=== PATIENT | female | born 1960 | race African-American/Black ===

== ENCOUNTER 2017-10-02 15:28 | Inpatient (IN) | payer OTHER ==
[2017-10-02 18:48] VITALS: BMI 28.3
--- NOTE | 2017-10-02 22:12 | HP ---
COWS - Scale Resting Pulse: 0= [place] 80 or Below Sweatin=Flushed/Facial Moisture Restless Observation: 0= Sits Still Pupil Size: 1= Pupils >than Normal Bone or Joint Aches: 4=Acute Joint/Muscle Pain Runny Nose/ Eye Tearin= Runny Nose/Eyes GI Upset > 30mins: 3= Vomiting/Diarrhea (DIARRHEA X 3, VOMITING X 1) Tremor Observation: 2= Slight Tremor Visible Yawning Observation: 0= None Anxiety or Irritability: 2=Irritable/Anxious Goose Flesh Skin: 0=Smooth Skin COWS Score: 16 Admission [facility] Chief Complaint: Heroin and cocaine withdrawal symptoms Allergies/Adverse Reactions: Allergies Allergy/AdvReac Type Severity Reaction Status Date / Time chlordiazepoxide Allergy Severe Nausea Verified 10/02/17 21:38 [From Librium] History of Present Illness: 57 years old female with a long history of heroin dependence is admitted to detox. Patient has been in previous detox, last at [facility] in 2014. Patient denies suicidal ideation and reports 5 years of sobriety. She has medical history of HTN, Hep C, GERD and depression. Exam Limitations: No Limitations - Ebola screening Have you traveled outside of the country in the last 21 days: No Have you had contact with anyone from an Ebola affected area: No Have you been sick,other than usual withdrawal symptoms: No Do you have a fever: No - Review of Systems Constitutional: Chills, Loss of Appetite, Malaise, Night Sweats, Changes in sleep EENT: reports: No Symptoms Reported, Other (use prescription eye wear) Respiratory: reports: No Symptoms reported Cardiac: reports: No Symptoms Reported GI: reports: Diarrhea, Poor Appetite, Poor Fluid Intake, Vomiting : reports: No Symptoms Reported Musculoskeletal: reports: Muscle Pain, Muscle Weakness Integumentary: reports: Flushing Neuro: reports: Headache, Tingling, Tremors Endocrine: reports: Increased Thirst Hematology: reports: No Symptoms Reported Psychiatric: reports: Orientated x3, Agitated, Anxious Other Systems: Reviewed and Negative Patient History - Patient Medical History Hx Anemia: No Hx Asthma: No Hx Chronic Obstructive Pulmonary Disease (COPD): No Hx Cancer: No Hx Cardiac Disorders: No Hx Congestive Heart Failure: No Hx Hypertension: Yes (Managed with Norvasc) Hx Hypercholesterolemia: No Hx Pacemaker: No HX Cerebrovascular Accident: No Hx Seizures: No Hx Dementia: No Hx Diabetes: No Hx Gastrointestinal Disorders: Yes (GERD) Hx Liver Disease: No Hx Genitourinary Disorders: No Hx Sexually Transmitted Disorders: No Hx Renal Disease (ESRD): No Hx Thyroid Disease: No Hx Human Immunodeficiency Virus (HIV): No Hx Hepatitis C: Yes Hx Depression: Yes Hx Suicide Attempt: No (Denies suicidal ideaion at this time) Hx Bipolar Disorder: No Hx Schizophrenia: No - Patient Surgical History Past Surgical History: Yes Hx Neurologic Surgery: No Hx Cataract Extraction: No Hx Cardiac Surgery: No Hx Lung Surgery: No Hx Breast Surgery: No Hx Breast Biopsy: No Hx Abdominal Surgery: No Hx Appendectomy: No Hx Cholecystectomy: No Hx Genitourinary Surgery: No Hx Section: Yes ( 25yrs ago) Hx Orthopedic Surgery: No Hx Hysterectomy: No Anesthesia Reaction: No - PPD History Previous Implant?: No Documented Results: Negative w/o proof Implanted On Prior [facility] Admission?: Yes Date: 02/20/14 Results: 0mm PPD to be Administered?: Yes - Reproductive History Patient is a Female of Child Bearing Age (11 -55 yrs old): No Last Menstrual Period: 11/17/07 LMP comment: Menopausal Patient : No - Smoking Cessation Smoking history: Current every day smoker Have you smoked in the past 12 months: Yes Aproximately how many cigarettes per day: 5 Hx Chewing Tobacco Use: No Initiated information on smoking cessation: Yes 'Breaking Loose' booklet given: 10/02/17 - Substance & Tx. History Hx Alcohol Use: No Hx Substance Use: Yes Substance Use Type: Cocaine, Heroin Hx Substance Use Treatment: Yes ([facility] 01/25/2015) - Substances Abused Heroin Route: Inhalation Frequency: Daily Amount used: 4 bags Age of first use: 15 Date of Last Use: 10/02/17 Cocaine Route: Smoking Frequency: Daily Amount used: 2 bags Age of first use: 15 Date of Last Use: 10/02/17 Family Disease History - Family Disease History Family Disease History: [place]: Father (), Mother (), Other: Father , Mother Admission Physical Exam BHS - Vital Signs Vital Signs: Vital Signs - 24 hr 10/02/17 18:44 Temperature 97.6 F Pulse Rate 72 Respiratory 18 Rate Blood Pressure 150/90 - Physical General Appearance: Yes: Moderate Distress HEENTM: Yes: Within Normal Limits, EOMI, MEEK, Other (Has dentures but left them at home) Respiratory: Yes: Lungs Clear, Normal Breath Sounds, No Respiratory Distress Neck: Yes: Supple Breast: Yes: Breast Exam Deferred Cardiology: Yes: Regular Rhythm, Regular Rate, S1, S2 Abdominal: Yes: Normal Bowel Sounds, Soft Genitourinary: Yes: Within Normal Limits Back: Yes: Within Normal Limits Musculoskeletal: Yes: Muscle Pain, Muscle weakness Extremities: Yes: Tremors Neurological: Yes: Within Normal Limits, Alert, Normal Response Integumentary: Yes: Dry Lymphatic: Yes: Within Normal Limits - Diagnostic (1) Opioid dependence with withdrawal Current Visit: Yes Status: Chronic (2) Cocaine dependence Current Visit: Yes Status: Chronic (3) HTN (hypertension) Current Visit: Yes Status: Chronic (4) Hepatitis C Current Visit: Yes Status: Chronic (5) Nicotine dependence Current Visit: Yes Status: Chronic Cleared for Admission [facility] - Detox or Rehab [facility] Level of Care: Medically Managed Detox Regimen/Protocol: Methadone [facility] Breath Alcohol Content Breath Alcohol Content: 0 Urine Pregancy Test - Result Urine Test Results: Negative- NO Line Present Urine Drug Screen - Results Drug Screen Negative: No Urine Drug Screen Results: WILBERT-Cocaine, OPI-Opiates
[2017-10-02] MEDS ORDERED: guaiFENesin/D-METHORPHAN HB 10 ML UNIT-DOSE CUPS PO PRN (22:23)
[2017-10-02] MEDS ORDERED: METHADONE HCL 10 MG TABLET (FOR DETOX USE ONLY) PO ONE ×2 (22:23→23:00)
[2017-10-02] MEDS ORDERED: MAGNESIUM HYDROX 2400MG/30ML ORAL SUSPENSION 30 ML CUP PO PRN (22:23)
[2017-10-02] MEDS ORDERED: MAG HYDROX/AL HYDROX/SIMETH 30 ML UNIT-DOSE CUP PO PRN (22:23)
[2017-10-02] MEDS ORDERED: NICOTINE POLACRILEX 2 MG GUM BC PRN (22:23)
[2017-10-02] MEDS ORDERED: LOPERAMIDE HCL 2 MG CAPSULE PO PRN (22:23)
[2017-10-02] MEDS ORDERED: MAGNESIUM CITRATE 300 ML BOTTLE PO PRN (22:23)
[2017-10-02] MEDS ORDERED: IBUPROFEN 400 MG TABLET (FP) PO PRN (22:23)
[2017-10-02] MEDS ORDERED: MENTHOL/PHENOL 1 EACH UD MM PRN (22:23)
[2017-10-02] MEDS: diazePAM 5 MG TABLET PO PRN (23:50)
[2017-10-03] MEDS: P-EPHED 60MG/TRIPROLIDI 2.5MG TABLET PO PRN ×3 (04:05→22:12)
[2017-10-03] MEDS ORDERED: METHADONE HCL 10 MG TABLET (FOR DETOX USE ONLY) PO ONE (10:00)
[2017-10-03 10:07] LABS: HEMATOCRIT 38.8 % (32.4-45.2); HEMOGLOBIN 12.1 GM/dL (10.7-15.3); MCH 24.3 pg (25.7-33.7); MCHC 31.1 g/dl (32.0-36.0); MEAN CELL VOLUME 78.2 fl (80-96); MEAN PLT VOLUME 9.3 fl (7.5-11.1); PLATELET COUNT 329 K/MM3 (134-434); RBC 4.96 M/mm3 (3.60-5.2); RDW 19.3 % (11.6-15.6); WHITE BLOOD COUNT 6.3 K/mm3 (4.0-10.0)
[2017-10-03] MEDS: NICOTINE 14 MG/24 HOURS TOPICAL PATCH TD SCH (10:07)
[2017-10-03] MEDS: PRENATAL VITAMINS W/ FOLIC ACID TABLET (FP) PO SCH (10:07)
[2017-10-03] MEDS: amLODIPine BESYLATE 5 MG TABLET (FP) PO SCH (10:07)
[2017-10-03] MEDS: diazePAM 5 MG TABLET PO PRN (10:07)
--- NOTE | 2017-10-03 10:52 | PN ---
BHS COWS - Scale Resting Pulse: 0= [place] 80 or Below Sweatin= No chills or Flushing Restless Observation: 1= Difficult to Sit Still Pupil Size: 2= Moderately Dilated Bone or Joint Aches: 2= Severe Diffuse Aches Runny Nose/ Eye Tearin= Nasal Congestion GI Upset > 30mins: 2= Nausea/Diarrhea Tremor Observation of Outstretched Hands: 2= Slight Tremor Visible Yawning Observation: 1= 1-2x During Session Anxiety or Irritability: 2=Irritable/Anxious Goose Flesh Skin: 0=Smooth Skin COWS Score: 13 BHS Progress Note (SOAP) Objective: 10/03/17 10:51 Laboratory Tests 10/03/17 07:00 WBC 6.3 D RBC 4.96 Hgb 12.1 Hct 38.8 MCV 78.2 L MCH 24.3 L MCHC 31.1 L RDW 19.3 H D Plt Count 329 MPV 9.3 Vital Signs - 24 hr 10/02/17 10/02/17 10/03/17 18:44 23:50 03:30 Temperature 97.6 F 98.2 F Pulse Rate 72 72 Respiratory 18 18 18 Rate Blood Pressure 150/90 151/99 10/03/17 10/03/17 06:00 09:26 Temperature 98.6 F 98.8 F Pulse Rate 69 70 Respiratory 18 16 Rate Blood Pressure 135/85 152/76 [facility] PENDING Assessment: 10/03/17 10:52 ONGOING WITHDRAWAL Plan: CONTINUE DETOX PROTOCOL
[2017-10-03 11:41] LABS: CHLORIDE 105 mmol/L (98-107); SODIUM 141 mmol/L (136-145)
[2017-10-03 12:11] LABS: ALBUMIN 3.4 g/dl (3.4-5.0); ALK PHOS 116 U/L (45-117); ANION GAP 7 (8-16); BILIRUBIN,TOTAL 0.4 mg/dL (0.2-1.0); BLOOD UREA NITROGEN 14 mg/dL (7-18); CALCIUM 9.2 mg/dL (8.5-10.1); CO2 29 mmol/L (21-32); CREATININE 0.7 mg/dL (0.55-1.02); GLUCOSE,RANDOM 103 mg/dL (74-106); SGPT/ALT 20 U/L (12-78)
[2017-10-03 12:17] LABS: POTASSIUM 5.1 mmol/L (3.5-5.1); SGOT/AST 18 U/L (15-37)
--- NOTE | 2017-10-03 14:12 | CONSULT ---
[facility] Psychiatric Consult - Data Date of interview: 10/03/17 Admission source: [facility] Identifying data: Pt. is a 57 year old female, single, mother of six, unemployed and currently homeless. This is one of multiple admissions for patient. Pt. admitted to for opiate and cocaine dependence. Substance Abuse History: Following information confirmed with Ms. Coelho: Smoking Cessation. Smoking history: Current every day smoker. Have you smoked in the past 12 months: Yes. Aproximately how many cigarettes per day: 5. Hx Chewing Tobacco Use: No. Initiated information on smoking cessation: Yes. ' Breaking Loose' booklet given: 10/02/17. - Substance & Tx. History. Hx Alcohol Use: No. Hx Substance Use: Yes. Substance Use Type: Cocaine, Heroin. Hx Substance Use Treatment: Yes ([facility] 01/25/2015). - Substances Abused. Heroin. Route: Inhalation. Frequency: Daily. Amount used: 4 bags. Age of first use: 15. Date of Last Use: 10/02/17. Cocaine. Route: Smoking. Frequency: Daily. Amount used: 2 bags. Age of first use: 15. Date of Last Use : 10/02/17 Medical History: hypertension, GERD, HEP C Psychiatric History: Pt. reports one psychiatric hospitalization approximately [address] [facility]. States she was diagnosed with MDD. Last had OPC three years ago and was prescribed paxil (unknown dose) and Mirtazapine 45mg. Pt. was restarted on her medications while incarcerated for 6 months in 2017 for a misdeamonor. Reports last taking paxil and mirtazapine in June of 2017. As per pharmacy claims, patient was given a prescription of Mirtazapine 45mg and Paxil 20mg on 07/02/17. Pt. denies h/o suicide attempt. Pt. denies suicial and homicidal ideation. Physical/Sexual Abuse/Trauma History: Denies. Mental Status Exam - Mental Status Exam Alert and Oriented to: Time, Place, Person Cognitive Function: Good Patient Appearance: Unkempt Mood: Withdrawn, Euthymic Affect: Mood Congruent Patient Behavior: Fatigued, Cooperative Speech Pattern: Appropriate Voice Loudness: Normal Thought Process: Goal Oriented Thought Disorder: Not Present Hallucinations: Denies Suicidal Ideation: Denies Homicidal Ideation: Denies Insight/Judgement: Poor Sleep: Poorly Appetite: Fair Muscle strength/Tone: Normal Gait/Station: Normal Psychiatric Findings - Problem List (Wever 1, 2,3) (1) MDD (major depressive disorder) Current Visit: Yes Status: Chronic Comment: Self reports. (2) Cocaine dependence Current Visit: Yes Status: Acute (3) Opioid dependence with withdrawal Current Visit: Yes Status: Acute (4) Opioid dependence Current Visit: Yes Status: Acute (5) Nicotine dependence Current Visit: Yes Status: Chronic - Initial Treatment Plan Initial Treatment Plan: Psychoeducation provided. Detoxification in progress. Mirtazapine 15mg + Paxil 20mg PO daily. Benefits and side effects discussed. Verbal consent given. Will continue to monitor patient.
[2017-10-03] MEDS: THIAMINE HCL 100 MG TABLET (FP) PO SCH (22:10)
[2017-10-03] MEDS: MIRTAZAPINE 15 MG TABLET (FP) PO SCH (22:10)
[2017-10-04] MEDS: ACETAMINOPHEN 325 MG TABLET (FP) PO PRN ×2 (06:57→22:06)
[2017-10-04] MEDS: P-EPHED 60MG/TRIPROLIDI 2.5MG TABLET PO PRN ×2 (06:58→19:28)
--- NOTE | 2017-10-04 07:53 | EKG ---
Test Reason : Blood Pressure : / mmHG Vent. Rate : 065 BPM Atrial Rate : 065 BPM P-R Int : 150 ms QRS Dur : 084 ms QT Int : 424 ms P-R-T Axes : 027 043 -27 degrees QTc Int : 440 ms NORMAL SINUS RHYTHM WITH SINUS ARRHYTHMIA VOLTAGE CRITERIA FOR LEFT VENTRICULAR HYPERTROPHY NONSPECIFIC ST AND T WAVE ABNORMALITY ABNORMAL ECG NO PREVIOUS ECGS AVAILABLE Confirmed by HÉCTOR SHERIDAN MD ([id number]) on 10/04/2017 7:53:19 AM Referred By: Confirmed By:HÉCTOR SHERIDAN MD
[2017-10-04] MEDS ORDERED: METHADONE HCL 5 MG TABLET (FOR DETOX USE ONLY) PO ONE (10:00)
--- NOTE | 2017-10-04 10:23 | EKG ---
Test Reason : Blood Pressure : / mmHG Vent. Rate : 062 BPM Atrial Rate : 062 BPM P-R Int : 142 ms QRS Dur : 084 ms QT Int : 456 ms P-R-T Axes : 014 053 -61 degrees QTc Int : 462 ms NORMAL SINUS RHYTHM MODERATE VOLTAGE CRITERIA FOR LVH, MAY BE NORMAL VARIANT T WAVE ABNORMALITY, CONSIDER INFEROLATERAL ISCHEMIA PROLONGED QT ABNORMAL ECG WHEN COMPARED WITH ECG OF 03-OCT-2017 00:12, INVERTED T WAVES HAVE REPLACED NONSPECIFIC T WAVE ABNORMALITY IN LATERAL LEADS Confirmed by FATIMAH DRAPER, HÉCTOR ([id number]) on 10/04/2017 10:22:50 AM Referred By: Confirmed By:HÉCTOR SHERIDAN MD
[2017-10-04] MEDS: PARoxetine HCL 20 MG TABLET (FP) PO SCH (10:26)
[2017-10-04] MEDS: PRENATAL VITAMINS W/ FOLIC ACID TABLET (FP) PO SCH (10:26)
[2017-10-04] MEDS: amLODIPine BESYLATE 5 MG TABLET (FP) PO SCH (10:26)
[2017-10-04] MEDS: NICOTINE 14 MG/24 HOURS TOPICAL PATCH TD SCH (10:26)
[2017-10-04] MEDS: diazePAM 5 MG TABLET PO PRN (10:26)
[2017-10-04 13:46] LABS: URINE APPEARANCE SLCLOUDY; URINE BILIRUBIN NEGATIVE (NEGATIVE); URINE BLOOD NEGATIVE (NEGATIVE); URINE COLOR YELLOW; URINE GLUCOSE (UA) NEGATIVE (NEGATIVE); URINE KETONE NEGATIVE (NEGATIVE); URINE NITRITE NEGATIVE (NEGATIVE); URINE PROTEIN NEGATIVE (NEGATIVE)
--- NOTE | 2017-10-04 13:57 | PN ---
BHS COWS - Scale Resting Pulse: 1= [place] 81-100 Sweatin= Chills/Flushing Restless Observation: 1= Difficult to Sit Still Pupil Size: 1= Pupils >than Normal Bone or Joint Aches: 1= Mild Discomfort Runny Nose/ Eye Tearin= Nasal Congestion GI Upset > 30mins: 1= Stomach Cramp Tremor Observation of Outstretched Hands: 1= Tremor [place], Not Seen Yawning Observation: 0= None Anxiety or Irritability: 1=Feels Anxious/Irritable Goose Flesh Skin: 0=Smooth Skin COWS Score: 9 BHS Progress Note (SOAP) Subjective: interrupted sleep, sweats, constipation , nasal congestion Objective: 10/04/17 13:56 Vital Signs Temperature 98.4 F 10/04/17 13:08 Pulse Rate 98 H 10/04/17 13:08 Respiratory Rate 18 10/04/17 13:08 Blood Pressure 148/98 10/04/17 13:08 O2 Sat by Pulse Oximetry (%) Laboratory Tests 10/03/17 10/03/17 10/03/17 07:00 07:00 07:00 WBC 6.3 D RBC 4.96 Hgb 12.1 Hct 38.8 MCV 78.2 L MCH 24.3 L MCHC 31.1 L RDW 19.3 H D Plt Count 329 MPV 9.3 Sodium 141 Potassium 5.1 Chloride 105 Carbon Dioxide 29 Anion Gap 7 L BUN 14 Creatinine 0.7 Creat Clearance w eGFR > 60 Random Glucose 103 Calcium 9.2 Total Bilirubin 0.4 D AST 18 ALT 20 Alkaline Phosphatase 116 Total Protein 7.0 Albumin 3.4 RPR Titer Nonreactive pt aox3 in nad + nasal congestion Assessment: 10/04/17 13:57 withdrawal sx's Plan: cont. detox increase fluids flonase nasal
[2017-10-04 14:04] LABS: URINE LEUK ESTERASE 3+ (NEGATIVE)
[2017-10-04 14:06] LABS: EPI CELLS MODERATE /HPF (FEW); URINE HYALINE CAST 2 /lpf; URINE MUCUS RARE
[2017-10-04] MEDS: THIAMINE HCL 100 MG TABLET (FP) PO SCH (22:05)
[2017-10-04] MEDS: FLUTICASONE PROP 0.05% 16 GM NASAL SPRAY NS SCH (22:05)
[2017-10-04] MEDS: MIRTAZAPINE 15 MG TABLET (FP) PO SCH (22:05)
[2017-10-05] MEDS: ACETAMINOPHEN 325 MG TABLET (FP) PO PRN (05:16)
[2017-10-05] MEDS: P-EPHED 60MG/TRIPROLIDI 2.5MG TABLET PO PRN (05:16)
[2017-10-05] MEDS: diazePAM 5 MG TABLET PO PRN ×2 (05:18→10:06)
--- NOTE | 2017-10-05 09:04 | PN ---
BHS Progress Note (SOAP) Subjective: general body ache joints ache GI distress anxiety Objective: 10/05/17 09:04 Vital Signs Temperature 98.1 F 10/05/17 07:14 Pulse Rate 73 10/05/17 07:14 Respiratory Rate 19 10/05/17 07:14 Blood Pressure 143/90 10/05/17 07:14 O2 Sat by Pulse Oximetry (%) Laboratory Last Values WBC 6.3 K/mm3 (4.0-10.0) D 10/03/17 07:00 RBC 4.96 M/mm3 (3.60-5.2) 10/03/17 07:00 Hgb 12.1 GM/dL (10.7-15.3) 10/03/17 07:00 Hct 38.8 % (32.4-45.2) 10/03/17 07:00 MCV 78.2 fl (80-96) L 10/03/17 07:00 MCH 24.3 pg (25.7-33.7) L 10/03/17 07:00 MCHC 31.1 g/dl (32.0-36.0) L 10/03/17 07:00 RDW 19.3 % (11.6-15.6) H D 10/03/17 07:00 Plt Count 329 K/MM3 (134-434) 10/03/17 07:00 MPV 9.3 fl (7.5-11.1) 10/03/17 07:00 Sodium 141 mmol/L (136-145) 10/03/17 07:00 Potassium 5.1 mmol/L (3.5-5.1) 10/03/17 07:00 Chloride 105 mmol/L (98-107) 10/03/17 07:00 Carbon Dioxide 29 mmol/L (21-32) 10/03/17 07:00 Anion Gap 7 (8-16) L 10/03/17 07:00 BUN 14 mg/dL (7-18) 10/03/17 07:00 Creatinine 0.7 mg/dL (0.55-1.02) 10/03/17 07:00 Creat Clearance w eGFR > 60 (>60) 10/03/17 07:00 Random Glucose 103 mg/dL (74-106) 10/03/17 07:00 Calcium 9.2 mg/dL (8.5-10.1) 10/03/17 07:00 Total Bilirubin 0.4 mg/dL (0.2-1.0) D 10/03/17 07:00 AST 18 U/L (15-37) 10/03/17 07:00 ALT 20 U/L (12-78) 10/03/17 07:00 Alkaline Phosphatase 116 U/L (45-117) 10/03/17 07:00 Total Protein 7.0 g/dl (6.4-8.2) 10/03/17 07:00 Albumin 3.4 g/dl (3.4-5.0) 10/03/17 07:00 Urine Color Yellow 10/04/17 11:05 Urine Appearance Slcloudy 10/04/17 11:05 Urine pH 6.0 (5.0-8.0) 10/04/17 11:05 Ur Specific [place] 1.016 (1.001-1.035) 10/04/17 11:05 Urine Protein Negative (NEGATIVE) 10/04/17 11:05 Urine Glucose (UA) Negative (NEGATIVE) 10/04/17 11:05 Urine Ketones Negative (NEGATIVE) 10/04/17 11:05 Urine Blood Negative (NEGATIVE) 10/04/17 11:05 Urine Nitrite Negative (NEGATIVE) 10/04/17 11:05 Urine Bilirubin Negative (NEGATIVE) 10/04/17 11:05 Urine Urobilinogen 2.0 mg/dL (0.2-1.0) H 10/04/17 11:05 Ur Leukocyte Esterase 3+ (NEGATIVE) H 10/04/17 11:05 Urine WBC (Auto) 10 /hpf (3-5) 10/04/17 11:05 Urine RBC (Auto) 5 /hpf (0-3) 10/04/17 11:05 Ur Epithelial Cells Moderate /HPF (FEW) 10/04/17 11:05 Hyaline Casts 2 /lpf 10/04/17 11:05 Urine Mucus Rare 10/04/17 11:05 RPR Titer Nonreactive (NONREACTIVE) 10/03/17 07:00 lab noted Assessment: 10/05/17 09:12 withdrawal sx Plan: continue detox
[2017-10-05] MEDS ORDERED: METHADONE HCL 5 MG TABLET (FOR DETOX USE ONLY) PO ONE (10:00)
[2017-10-05] MEDS: PRENATAL VITAMINS W/ FOLIC ACID TABLET (FP) PO SCH (10:04)
[2017-10-05] MEDS: PARoxetine HCL 20 MG TABLET (FP) PO SCH (10:05)
[2017-10-05] MEDS: amLODIPine BESYLATE 10 MG TABLET (FP) PO SCH (10:07)
[2017-10-05] MEDS: NICOTINE 14 MG/24 HOURS TOPICAL PATCH TD SCH (10:07)
[2017-10-05] MEDS: FLUTICASONE PROP 0.05% 16 GM NASAL SPRAY NS SCH ×2 (10:08→22:06)
[2017-10-05] MEDS: THIAMINE HCL 100 MG TABLET (FP) PO SCH (22:06)
[2017-10-05] MEDS: MIRTAZAPINE 15 MG TABLET (FP) PO SCH (22:06)
[2017-10-06] MEDS: P-EPHED 60MG/TRIPROLIDI 2.5MG TABLET PO PRN (05:37)
--- NOTE | 2017-10-06 09:20 | PN ---
BHS Progress Note (SOAP) Subjective: patient appears sedated from medication, no complaints otherwise Objective: 10/06/17 09:19 Vital Signs - 24 hr 10/05/17 10/05/17 10/05/17 09:33 13:04 13:05 Temperature 99.0 F 99.0 F 98.1 F Pulse Rate 70 70 60 Respiratory 18 18 18 Rate Blood Pressure 131/76 131/76 113/75 10/05/17 10/05/17 10/06/17 17:42 21:53 00:30 Temperature 98.1 F 98.8 F Pulse Rate 60 66 Respiratory 18 18 18 Rate Blood Pressure 107/63 114/62 10/06/17 10/06/17 03:30 06:42 Temperature 100.2 F H Pulse Rate 74 Respiratory 18 18 Rate Blood Pressure 120/73 Laboratory Tests 10/03/17 10/03/17 10/03/17 07:00 07:00 07:00 WBC 6.3 D RBC 4.96 Hgb 12.1 Hct 38.8 MCV 78.2 L MCH 24.3 L MCHC 31.1 L RDW 19.3 H D Plt Count 329 MPV 9.3 Sodium 141 Potassium 5.1 Chloride 105 Carbon Dioxide 29 Anion Gap 7 L BUN 14 Creatinine 0.7 Creat Clearance w eGFR > 60 Random Glucose 103 Calcium 9.2 Total Bilirubin 0.4 D AST 18 ALT 20 Alkaline Phosphatase 116 Total Protein 7.0 Albumin 3.4 Urine Color Urine Appearance Urine pH Ur Specific [place] Urine Protein Urine Glucose (UA) Urine Ketones Urine Blood Urine Nitrite Urine Bilirubin Urine Urobilinogen Ur Leukocyte Esterase Urine WBC (Auto) Urine RBC (Auto) Ur Epithelial Cells Hyaline Casts Urine Mucus RPR Titer Nonreactive 10/04/17 11:05 WBC RBC Hgb Hct MCV MCH MCHC RDW Plt Count MPV Sodium Potassium Chloride Carbon Dioxide Anion Gap BUN Creatinine Creat Clearance w eGFR Random Glucose Calcium Total Bilirubin AST ALT Alkaline Phosphatase Total Protein Albumin Urine Color Yellow Urine Appearance Slcloudy Urine pH 6.0 Ur Specific [place] 1.016 Urine Protein Negative Urine Glucose (UA) Negative Urine Ketones Negative Urine Blood Negative Urine Nitrite Negative Urine Bilirubin Negative Urine Urobilinogen 2.0 H Ur Leukocyte Esterase 3+ H Urine WBC (Auto) 10 Urine RBC (Auto) 5 Ur Epithelial Cells Moderate Hyaline Casts 2 Urine Mucus Rare RPR Titer abnormal u/a Assessment: 10/06/17 09:19 withdrawal sx - decrease methadone dose for detox because fo sedation most likely caused by night time remeron, remeron dose halved, d/c all non essential seating mediations repeat u/a
[2017-10-06] MEDS ORDERED: METHADONE HCL 5 MG TABLET (FOR DETOX USE ONLY) PO ONE (10:00)
[2017-10-06] MEDS ORDERED: METHADONE HCL 10 MG TABLET (FOR DETOX USE ONLY) PO ONE (10:00)
[2017-10-06] MEDS: amLODIPine BESYLATE 10 MG TABLET (FP) PO SCH (10:10)
[2017-10-06] MEDS: PRENATAL VITAMINS W/ FOLIC ACID TABLET (FP) PO SCH (10:10)
[2017-10-06] MEDS: PARoxetine HCL 20 MG TABLET (FP) PO SCH (10:10)
[2017-10-06] MEDS: NICOTINE 14 MG/24 HOURS TOPICAL PATCH TD SCH (10:11)
[2017-10-06] MEDS: FLUTICASONE PROP 0.05% 16 GM NASAL SPRAY NS SCH ×2 (10:11→22:20)
[2017-10-06] MEDS: PANTOPRAZOLE 40 MG TABLET (FP) PO SCH (10:12)
[2017-10-06 20:08] LABS: URINE APPEARANCE CLOUDY; URINE BILIRUBIN NEGATIVE (NEGATIVE); URINE BLOOD NEGATIVE (NEGATIVE); URINE COLOR AMBER; URINE GLUCOSE (UA) NEGATIVE (NEGATIVE); URINE KETONE NEGATIVE (NEGATIVE); URINE NITRITE NEGATIVE (NEGATIVE); URINE PROTEIN NEGATIVE (NEGATIVE)
[2017-10-06 20:29] LABS: URINE LEUK ESTERASE 3+ (NEGATIVE)
[2017-10-06 20:39] LABS: EPI CELLS RARE /HPF (FEW); GRANULAR CASTS 6 /lpf; URINE HYALINE CAST 11 /lpf; URINE MUCUS RARE
[2017-10-06] MEDS ORDERED: MIRTAZAPINE 15 MG TABLET (FP) PO SCH (22:00)
[2017-10-06] MEDS: ACETAMINOPHEN 325 MG TABLET (FP) PO PRN (22:18)
[2017-10-06] MEDS: THIAMINE HCL 100 MG TABLET (FP) PO SCH (22:21)
--- NOTE | 2017-10-06 23:42 | PN ---
BHS Progress Note Note: patient with symptomatic urinary symptoms. Bactrim x 3 days order
[2017-10-07] MEDS: SULFAMETHOXAZOLE/TRIMETHOPRIM 800MG/160MG D.S. TABLET PO SCH ×2 (00:15→09:25)
[2017-10-07] MEDS: ACETAMINOPHEN 325 MG TABLET (FP) PO PRN (05:22)
[2017-10-07] MEDS ORDERED: METHADONE HCL 5 MG TABLET (FOR DETOX USE ONLY) PO ONE (06:00)
[2017-10-07] MEDS: FLUTICASONE PROP 0.05% 16 GM NASAL SPRAY NS SCH (09:25)
[2017-10-07] MEDS: PRENATAL VITAMINS W/ FOLIC ACID TABLET (FP) PO SCH (09:25)
[2017-10-07] MEDS: amLODIPine BESYLATE 10 MG TABLET (FP) PO SCH (09:25)
[2017-10-07] MEDS: NICOTINE 14 MG/24 HOURS TOPICAL PATCH TD SCH (09:25)
[2017-10-07] MEDS: PANTOPRAZOLE 40 MG TABLET (FP) PO SCH (09:26)
--- NOTE | 2017-10-07 10:31 | DS ---
[facility] Detox Discharge Summary Admission Date: 10/02/17 Discharge Date: 10/07/17 - History Additional Comments: Pt A & O x 3, for d/c todat. Will f/u as outpatient in [facility] prescription sent to pt's pharmacy, States does not need protonix . Pertinent Past History: HTN GERD - Physical Exam Results Vital Signs: Vital Signs Temperature 98.2 F 10/07/17 07:30 Pulse Rate 63 10/07/17 06:00 Respiratory Rate 18 10/07/17 06:00 Blood Pressure 131/77 10/07/17 06:00 O2 Sat by Pulse Oximetry (%) Pertinent Admission Physical Exam Findings: Vital Signs Temperature 98.2 F 10/07/17 07:30 Pulse Rate 63 10/07/17 06:00 Respiratory Rate 18 10/07/17 06:00 Blood Pressure 131/77 10/07/17 06:00 O2 Sat by Pulse Oximetry (%) Laboratory Last Values WBC 6.3 K/mm3 (4.0-10.0) D 10/03/17 07:00 RBC 4.96 M/mm3 (3.60-5.2) 10/03/17 07:00 Hgb 12.1 GM/dL (10.7-15.3) 10/03/17 07:00 Hct 38.8 % (32.4-45.2) 10/03/17 07:00 MCV 78.2 fl (80-96) L 10/03/17 07:00 MCH 24.3 pg (25.7-33.7) L 10/03/17 07:00 MCHC 31.1 g/dl (32.0-36.0) L 10/03/17 07:00 RDW 19.3 % (11.6-15.6) H D 10/03/17 07:00 Plt Count 329 K/MM3 (134-434) 10/03/17 07:00 MPV 9.3 fl (7.5-11.1) 10/03/17 07:00 Sodium 141 mmol/L (136-145) 10/03/17 07:00 Potassium 5.1 mmol/L (3.5-5.1) 10/03/17 07:00 Chloride 105 mmol/L (98-107) 10/03/17 07:00 Carbon Dioxide 29 mmol/L (21-32) 10/03/17 07:00 Anion Gap 7 (8-16) L 10/03/17 07:00 BUN 14 mg/dL (7-18) 10/03/17 07:00 Creatinine 0.7 mg/dL (0.55-1.02) 10/03/17 07:00 Creat Clearance w eGFR > 60 (>60) 10/03/17 07:00 Random Glucose 103 mg/dL (74-106) 10/03/17 07:00 Calcium 9.2 mg/dL (8.5-10.1) 10/03/17 07:00 Total Bilirubin 0.4 mg/dL (0.2-1.0) D 10/03/17 07:00 AST 18 U/L (15-37) 10/03/17 07:00 ALT 20 U/L (12-78) 10/03/17 07:00 Alkaline Phosphatase 116 U/L (45-117) 10/03/17 07:00 Total Protein 7.0 g/dl (6.4-8.2) 10/03/17 07:00 Albumin 3.4 g/dl (3.4-5.0) 10/03/17 07:00 Urine Color [place] 10/06/17 19:38 Urine Appearance Cloudy 10/06/17 19:38 Urine pH 5.0 (5.0-8.0) 10/06/17 19:38 Ur Specific [place] 1.017 (1.001-1.035) 10/06/17 19:38 Urine Protein Negative (NEGATIVE) 10/06/17 19:38 Urine Glucose (UA) Negative (NEGATIVE) 10/06/17 19:38 Urine Ketones Negative (NEGATIVE) 10/06/17 19:38 Urine Blood Negative (NEGATIVE) 10/06/17 19:38 Urine Nitrite Negative (NEGATIVE) 10/06/17 19:38 Urine Bilirubin Negative (NEGATIVE) 10/06/17 19:38 Urine Urobilinogen 2.0 mg/dL (0.2-1.0) H 10/06/17 19:38 Ur Leukocyte Esterase 3+ (NEGATIVE) H 10/06/17 19:38 Urine WBC (Auto) 87 /hpf (3-5) 10/06/17 19:38 Urine RBC (Auto) 13 /hpf (0-3) 10/06/17 19:38 Ur Epithelial Cells Rare /HPF (FEW) 10/06/17 19:38 Hyaline Casts 11 /lpf 10/06/17 19:38 Granular Casts 6 /lpf 10/06/17 19:38 Urine Mucus Rare 10/06/17 19:38 RPR Titer Nonreactive (NONREACTIVE) 10/03/17 07:00 Noted - Treatment Hospital Course: Detox Protocol Followed, Detoxed Safely, Responded well, Discharged Condition Good - Medication Discharge Medications: Ambulatory Orders Mirtazapine [Remeron -] 15 mg PO HS #30 tablet 01/19/15 Pantoprazole Sodium [Protonix -] 40 mg PO DAILY #30 tablet.ec 01/19/15 Amlodipine Besylate [Norvasc -] 5 mg PO DAILY #30 tablet 10/07/17 - AMA Did Patient Leave Against Medical Advice: No
[2017-10-07 11:11] VITALS: BP 134/71; PULSE 61; TEMP 98.4
== END 2017-10-07 09:52 | disposition home or self-care (01) | DRG 773 ==
LOC: YASAS 15:28 → Y6N 18:59
PROVIDERS: ADMIT Internal Medicine; ATTEND Internal Medicine
PROC: HZ2ZZZZ Detoxification Services for Substance Abuse Treatment (ICD-10-PCS; principal; 2017-10-02)
DX: F11.23 Opioid dependence with withdrawal (principal); F17.210 Nicotine dependence, cigarettes, uncomplicated; F33.9 Major depressive disorder, recurrent, unspecified; I10 Essential (primary) hypertension; K21.9 Gastro-esophageal reflux disease without esophagitis; B18.2 Chronic viral hepatitis C
CPT/HCPCS: 36415; 80053; 81003; 81015; 85027; 86593; 87086; 93005; 93010